=== PATIENT | female | born 1990 | race Two or more races ===

== ENCOUNTER 2019-05-17 10:25 | Emergency (ER) | payer MEDICAID ==
[~2019-05-17] VITALS: Ht 152.4 cm; Wt 81.6 kg
[2019-05-17 11:53] LABS: Urine Bacteria NONE SEEN /hpf (None Seen); Urine Blood 3+ /uL (Negative); Urine Mucus FEW (None Seen); Urine Specific Gravity 1.025 (1.001-1.035); Urine WBC 193 /hpf (0 - 5)
[2019-05-17 12:00] LABS: Basophils # (auto) 0 uL; Basophils % (auto) 0.1 % (0.0-2.0); Eosinophils # (auto) 0 uL; Hematocrit 41.3 % (36.0-46.0); Hemoglobin 14.3 g/dL (12.2-16.2); Lymphocytes # (auto) 1.6 uL; Lymphocytes % (auto) 8.5 % (10.0-50.0); Mean Corpuscular Hemoglobin 30.4 pg (28.0-32.0); Mean Corpuscular Hgb Conc. 34.7 g/dL (32.0-36.0); Mean Corpuscular Volume 87.9 fL (80.0-100.0); Monocytes # (auto) 1.1 uL; Monocytes % (auto) 5.9 % (0.0-12.0); Neutrophils # (auto) 15.7 uL; Neutrophils % (auto) 85.5 % (37.0-80.0); Platelet Count (auto) 212 10^3/uL (140-450); White Blood Cell 18.3 10^3/uL (4.4-10.8)
[2019-05-17 12:42] LABS: Calcium 8.5 mg/dL (8.5-10.1); Potassium 3.8 mmol/L (3.5-5.1)
[2019-05-17 12:45] LABS: Bilirubin, Total 1.3 mg/dL (0.2-1.0)
[2019-05-17] MEDS ORDERED: cefTRIAXone 1GM/50ML D5W 50 ML IV ONE (15:45)
[2019-05-17] MEDS ORDERED: SODIUM CHLORIDE 0.9% 1,000 ML IV ONE (15:45)
[2019-05-17 15:57] VITALS: BP 106/61
== END 2019-05-17 17:12 | disposition home or self-care (01) ==
LOC: ER 10:25
DX: O20.8 Other hemorrhage in early pregnancy (principal); O23.41 Unspecified infection of urinary tract in pregnancy, first trimester; Z3A.01 Less than 8 weeks gestation of pregnancy
CPT/HCPCS: 36415; 76801; 80053; 81001; 84702; 85025; 96365; 99284; J0696; J7030